=== PATIENT | male | born 1935 | race Caucasian/White ===

== ENCOUNTER 2023-01-23 15:00 | Outpatient (RCR) | payer MEDICARE, SELFPAY | END 2023-01-25 11:45 | LOC: HO.PT 15:00 | PROVIDERS: Visit Provider Physician Assistant Medical | DX: M99.05 Segmental and somatic dysfunction of pelvic region (principal); Z92.3 Personal history of irradiation | CPT/HCPCS: 97112; 97140; 97162 ==